=== PATIENT | male | born 1935 | race Caucasian/White ===

== ENCOUNTER → 2017-05-24 | Outpatient (CLI) | payer MEDICARE ==
[2015-05-13 14:00] VITALS: BP 151/89
[~2017-05-24] MED LIST: ASPI-630 PO; CIPR500T94 PO; DULO20CA50 PO; GLIM4TAB2 PO; HYDR-971 PO; LEVO100T5 PO; LISI10TA2 PO; METF10002 PO; PHEN100T82 PO; SIMV80TA3 PO; SITA50TA PO; TAMS0.4C97 PO
[2017-05-24 12:15] LABS: ALBUMIN 3.8 g/dL (3.4-5.0); ALBUMIN/GLOBULIN RATIO 1.1 (1.0-1.7); CALCIUM 9.4 mg/dL (8.5-10.1); GFR 71.5; TOTAL BILIRUBIN 0.7 mg/dL (0.2-1.0); TOTAL PROTEIN 7.3 g/dL (6.4-8.2)
== END | disposition home or self-care (01) ==
LOC: LAB 10:58
PROVIDERS: ATTEND Internal Medicine Interventional Cardiology
DX: E78.2 Mixed hyperlipidemia (principal); E11.9 Type 2 diabetes mellitus without complications; I10 Essential (primary) hypertension
CPT/HCPCS: 36415; 80053; 80061

== ENCOUNTER → 2018-06-25 | Outpatient (CLI) | payer MEDICARE ==
[2015-05-13 14:00] VITALS: BP 151/89
[~2018-06-25] MED LIST changes: +HYDR-3165 PO; -HYDR-971 PO; -METF10002 PO; +METF10007 PO; +SIMV80TA17 PO; -SIMV80TA3 PO
[2018-06-25 12:53] LABS: ALBUMIN 3.8 g/dL (3.4-5.0); ALBUMIN/GLOBULIN RATIO 1.2 (1.0-1.7); CALCIUM 9.2 mg/dL (8.5-10.1); GFR 71.4; TOTAL BILIRUBIN 0.8 mg/dL (0.2-1.0)
== END | disposition home or self-care (01) ==
LOC: LAB 11:57
PROVIDERS: ATTEND Internal Medicine Interventional Cardiology
DX: E78.2 Mixed hyperlipidemia (principal); I10 Essential (primary) hypertension
CPT/HCPCS: 36415; 80053; 80061

== ENCOUNTER → 2018-06-25 | Outpatient (CLI) | payer MEDICARE ==
[2015-05-13 14:00] VITALS: BP 151/89
== END | disposition home or self-care (01) ==
LOC: LAB 12:07
PROVIDERS: ATTEND Urology
DX: R97.20 Elevated prostate specific antigen [PSA] (principal)
CPT/HCPCS: 84153; G0103

== ENCOUNTER → 2019-03-22 | Outpatient (CLI) | payer MEDICARE ==
[2015-05-13 14:00] VITALS: BP 151/89
[~2019-03-22] MED LIST changes: -GLIM4TAB2 PO; +GLIM4TAB4 PO
--- NOTE | 2019-03-22 13:34 | RAD ---
EXAM: Head CT without contrast. HISTORY: Memory issues. TECHNIQUE: Computed tomographic images of the head were obtained without contrast. *One or more of the following individualized dose reduction techniques were utilized for this examination: 1. Automated exposure control. 2. Adjustment of the mA and/or kV according to patient size. 3. Use of iterative reconstruction technique. COMPARISON: None. FINDINGS: There is no hemorrhage. There is no mass effect or midline shift. There is particular enlargement due to cerebral atrophy. There is also mild cerebellar volume loss. There are areas of decreased attenuation within the cerebral white matter, nonspecific and likely related to chronic small vessel disease. The visualized portions of the orbits, paranasal sinuses and mastoid air cells are unremarkable. No suspicious calvarial lesion is seen. IMPRESSION: 1. No acute intracranial finding. 2. Decreased attenuation within the cerebral white matter, likely due to chronic small vessel disease. 3. Cerebral and cerebellar volume loss. Electronically signed by: Devi Baxter MD (03/22/2019 1:31 PM) [id number]
== END | disposition home or self-care (01) ==
LOC: CT 10:02
PROVIDERS: ATTEND Family Medicine
DX: G31.9 Degenerative disease of nervous system, unspecified (principal); R41.3 Other amnesia
CPT/HCPCS: 70450

== ENCOUNTER 2020-04-22 13:45 | Emergency (ER) | payer MEDICARE ==
[~2020-04-22] VITALS: Ht 167.6 cm; Wt 76.6 kg
[~2020-04-22 13:45] MED LIST changes: -GLIM4TAB4 PO; +GLIM4TAB8 PO
--- NOTE | 2020-04-22 14:43 | PHYS DOC ---
Past History Past Medical History: Diabetes, CO, Other Additional Past Medical Histor: Cardiac Past Surgical History: Other Additional Past Surgical Histo: Cardiac Alcohol Use: None General Adult EDM: Chief Complaint: WEAKNESS/GENERALIZED HPI: HPI: Patient is a [age] year old [sex] who presents with [] Review of Systems: Review of Systems: Constitutional: Denies fever or chills Eyes: Denies redness or eye pain HENT: Denies nasal congestion or sore throat Respiratory: Denies cough or shortness of breath Cardiovascular: Denies chest pain or palpitations GI: Denies abdominal pain, nausea, or vomiting : Denies dysuria or hematuria Musculoskeletal: Denies back pain or joint pain Integument: Denies rash or skin lesions Neurologic: Denies headache, focal weakness or sensory changes Complete systems were reviewed and found to be within normal limits, except as documented in this note. Allergies: Allergies: Allergies Coded Allergies Type Severity Reaction Last Updated Verified codeine Allergy Intermediate 05/13/15 No Physical Exam: PE: Constitutional: Well developed, well nourished, no acute distress, non-toxic appearance HENT: Normocephalic, atraumatic Eyes: PERRL, EOMI, conjunctiva normal, no discharge Neck: Normal range of motion, no tenderness, supple Lungs & Thorax: No respiratory distress, equal chest rise and fall Abdomen: Soft, no tenderness Skin: Warm, dry, no erythema, no rash Back: No tenderness, no CVA tenderness Extremities: No tenderness, ROM intact, no edema Neurologic: Alert and oriented X 3, normal motor function, normal sensory function, no focal deficits noted Psychologic: Affect normal, judgment normal Current Patient Data: Vital Signs: Vital Signs Date Time Temp Pulse Resp B/P (MAP) Pulse Ox O2 Delivery O2 Flow Rate FiO2 04/22/20 14:02 98.2 72 16 167/80 (109) 99 EKG: EKG: @1452 NSR at 69bpm, occasional PVC, NO ST elevation, QRS 84ms, QT/QTc 360/387ms Radiology/Procedures: Radiology/Procedures: PROCEDURE: CHEST AP ONLY EXAM: CHEST 1 VIEW History: Weakness, cough COMPARISON: None available. TECHNIQUE: Single portable radiograph of the chest FINDINGS: The cardiac silhouette is unremarkable. The lungs are clear bilaterally. The costophrenic sulci are clear and well demarcated. IMPRESSION: No radiographic evidence of an acute cardiopulmonary process. Electronically signed by: Sebas Lizarraga MD (04/22/2020 3:18 PM) [id number] Heart Score: Risk Factors: Risk Factors: DM, Current or recent (<one month) smoker, HTN, HLP, family history of CAD, obesity. Risk Scores: Score 0 - 3: 2.5% MACE over next 6 weeks - Discharge Home Score 4 - 6: 20.3% MACE over next 6 weeks - Admit for Clinical Observation Score 7 - 10: 72.7% MACE over next 6 weeks - Early Invasive Strategies Course & Med Decision Making: Course & Med Decision Making Pertinent Labs and Imaging studies reviewed. (See chart for details) [] Dragon Disclaimer: Dragon Disclaimer: This electronic medical record was generated, in whole or in part, using a voice recognition dictation system. Departure Departure: Impression: Primary Impression: Bronchitis Additional Impressions: Suspected 2019 novel coronavirus infection Hyperglycemia Lactic acidosis Disposition: 01 DC HOME SELF CARE/HOMELESS Condition: STABLE Referrals: GISSELL POLLACK MD (PCP) Patient Instructions: Hyperglycemia, [id number], Lactic Acid, Lactate, Upper Respiratory Infection, Adult, [id number] Additional Instructions: You have been tested for or diagnosed with COVID-19. It is an infection caused by a new type of coronavirus. COVID-19 will cause cold-like or mild flu symptoms in most. It can cause more severe symptoms like problems breathing in some. There is no treatment for COVID-19. The body will clear the infection over time. Self-care will help to ease discomfort. Steps to Take: Self-Care Rest as needed. Healthy habits may help you feel better. Steps include: Choose healthy foods including fruits and vegetables. Drink water throughout the day. Get plenty of sleep each night. If you smoke, try to quit. It may ease breathing. Avoid alcohol. Keep Others Healthy The virus can spread to others. Droplets are released every time you sneeze or cough. The droplets can get into the mouth, nose, or eyes of people near you and lead to infection. To lower the chances of spreading COVID-19 to others: Stay at home until your doctor has said it is safe to leave. If you tested positive this will mean staying isolated until both of the following are true: At least 7 days have passed since the start of illness. You are free of fever for at least 72 hours without the use of medicine. During this time: - Avoid public areas, events, or transportation. Do not return to work or school until your doctor has said it is safe to do so. - Call ahead if you need to go to a medical center. Let them know you may have COVID-19. It will help them guide you where to go. They may also ask you to wear a facemask when you come to the office. - If you call for emergency medical services, let them know you may have COVID- 19. While at home: - Try to avoid close contact with others. Stay about 6 feet away. - If possible, spend most of your time in a separate room from others. - Use a face mask if you will be in close contact with others such as sharing a room or vehicle. - Have someone wipe down common surfaces in the home. Use household printing press operator apprentice every day on areas like doorknobs, counters, or sinks. - Cough or sneeze into a tissue. Throw the tissue away right after use. If a tissue is not available, cough or sneeze into your elbow. - Wash your hands often. Wash them after sneezing or coughing. Use soap and water and wash for at least 20 seconds. Alcohol based hand catch basin cleaner can be used if soap and water is not available. - Do not prepare food for others. Avoid sharing personal items like forks, spoons, or toothbrushes. - Avoid close contact with pets while you are sick. There is no evidence of the virus passing to pets. This is a safety step until more is known about this virus. Isolation can be frustrating. Social interaction can help. Keep in touch with friends and family through phone and tech options. You can still interact with others in your home, just keep a safe distance of about 6 feet. Follow-up: Your doctors office will check in with you to see if there are any changes in your health. You may be asked to keep track of symptoms to share with them. They will also let you know when you are clear to be in public again. Problems to Look Out For: Contact your doctor if your recovery is not going as you expect. Get emergency care if you have problems such as: - Trouble breathing - Nonstop chest pain or pressure - Changes in awareness, confusion, or problems waking - Lips or face have bluish color - Worsening of symptoms If you think you have an emergency, call for emergency medical services right away. As taken from [facility] [facility] Azithromycin (AZITHROMYCIN TABLET) 250 Mg Tablet 1 PKG PO UD for bronchitis, #6 TAB Take 2 tablets today and then one tablet every day thereafter for the next 4 days Prov: ABBEY ANTHONY DO 04/22/20 ABBEY ANTHONY DO Apr 22, 2020 14:43
--- NOTE | 2020-04-22 15:22 | RAD ---
EXAM: CHEST 1 VIEW History: Weakness, cough COMPARISON: None available. TECHNIQUE: Single portable radiograph of the chest FINDINGS: The cardiac silhouette is unremarkable. The lungs are clear bilaterally. The costophrenic sulci are clear and well demarcated. IMPRESSION: No radiographic evidence of an acute cardiopulmonary process. Electronically signed by: Sebas Lizarraga MD (04/22/2020 3:18 PM) [id number]
[2020-04-22 15:26] LABS: CALCIUM 9.5 mg/dL (8.5-10.1); CREATININE 1.1 mg/dL (0.7-1.3); GFR 63.6; POTASSIUM 4.2 mmol/L (3.5-5.1)
[2020-04-22 15:28] LABS: BASO # 0.1 x10^3/uL (0.0-0.2); BASO % 1 % (0-3); EOS # 0.2 x10^3/uL (0.0-0.7); EOS % 2 % (0-3); HEMATOCRIT 37.5 % (39.0-53.0); HEMOGLOBIN 12.5 g/dL (13.0-17.5); LYMPH # 1.4 x10^3/uL (1.0-4.8); LYMPH % 19 % (24-48); MEAN CORPUSCULAR HEMOGLOBIN 32 pg (25-35); MEAN CORPUSCULAR HGB CONC 33 g/dL (31-37); MEAN CORPUSCULAR VOLUME 95 fL (79-100); MONO # 0.7 x10^3/uL (0.0-1.1); MONO % 10 % (0-9); NEUT % 68 % (31-73); PLATELET COUNT 214 x10^3/uL (140-400); RED BLOOD COUNT 3.95 x10^6/uL (4.30-5.70); RED CELL DISTRIBUTION WIDTH 13.2 % (11.5-14.5); WHITE BLOOD COUNT 7.3 x10^3/uL (4.0-11.0)
--- NOTE | 2020-04-22 15:35 | EKG ---
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
[2020-04-22 15:39] LABS: ALBUMIN 3.9 g/dL (3.4-5.0); ALBUMIN/GLOBULIN RATIO 1.1 (1.0-1.7); TOTAL BILIRUBIN 0.7 mg/dL (0.2-1.0); TOTAL PROTEIN 7.5 g/dL (6.4-8.2)
[2020-04-22 15:48] LABS: INFLUENZA A PATIENT NEGATIVE (NEGATIVE); INFLUENZA B PATIENT NEGATIVE (NEGATIVE)
[2020-04-22] MEDS ORDERED: IV NORMAL SALINE 1,000ML 1,000 ML IV ONE (16:30)
[2020-04-22] MEDS ORDERED: INSULIN REGULAR 100 UNIT/ML 3ML VIAL. SQ ONE (16:30)
[2020-04-22 16:55] LABS: BILIRUBIN,URINE NEG (NEG); CLARITY,URINE CLEAR; COLOR,URINE STRAW; GLUCOSE,URINE >=1000 mg/dL (NEG)
[2020-04-22 16:56] LABS: BACTERIA,URINE 0 /HPF (0-FEW); NITRITE,URINE NEG (NEG); RBC,URINE 0 /HPF (0-2); SQUAMOUS EPITHELIAL CELL,UR OCC /LPF; UROBILINOGEN,URINE 0.2 mg/dL (0.2 mg/dL); WBC,URINE 0 /HPF (0-4)
[2020-04-22] MEDS ORDERED: AZIT250T6 PO (17:11)
[2020-04-22 17:15] VITALS: BP 185/92
== END 2020-04-22 17:16 | disposition home or self-care (01) ==
LOC: ER 13:45
DX: J40 Bronchitis, not specified as acute or chronic (principal); E11.65 Type 2 diabetes mellitus with hyperglycemia; I25.2 Old myocardial infarction; E87.2 Acidosis; Z20.828 Contact with and (suspected) exposure to other viral communicable diseases; Z88.5 Allergy status to narcotic agent
CPT/HCPCS: 36415; 71045; 80053; 81001; 83605; 83735; 83880; 85025; 85610; 85730; 87804; 93005; 96360; 96372; 99285; C9803; J1815; J7030; U0003

== ENCOUNTER → 2020-07-10 | Outpatient (CLI) | payer MEDICARE ==
[~2020-07-10] MED LIST changes: +AZIT250T6 PO
[2020-07-10 10:29] LABS: CALCIUM 9.4 mg/dL (8.5-10.1); CREATININE 1.2 mg/dL (0.7-1.3); GFR 57.5; POTASSIUM 5.1 mmol/L (3.5-5.1)
== END ==
LOC: LAB 09:51
PROVIDERS: ATTEND Internal Medicine Interventional Cardiology
DX: I10 Essential (primary) hypertension (principal)
CPT/HCPCS: 36415; 80048

== ENCOUNTER 2020-11-18 16:31 | Emergency (ER) | payer MEDICARE ==
[~2020-11-18] VITALS: Ht 165.1 cm; Wt 75.0 kg
[~2020-11-18 16:31] MED LIST changes: +LISI10TA16 PO; -LISI10TA2 PO
[2020-11-18] MEDS ORDERED: IV NORMAL SALINE 1,000ML 1,000 ML IV SCH (16:45)
--- NOTE | 2020-11-18 16:45 | PHYS DOC ---
General Adult HPI: HPI: Patient is a 84-year-old male presents with A. fib RVR. states that patient's heart rate has been in the 140s since last week. Patient was seen by his PCP today and was told to follow-up with cardiology. Patient contacted his independent consultant who referred him to the emergency room. Patient denies dizziness, chest pain, shortness of breath. Patient denies history of A. fib. Patient has a history of CAD, hypertension, diabetes, CABG, dementia. (MARY FREITAS APRN) Review of Systems: Review of Systems: Constitutional: Denies fever or chills Eyes: Denies change in visual acuity HENT: Denies nasal congestion or sore throat Respiratory: Denies cough or shortness of breath Cardiovascular: Denies chest pain or edema GI: Denies abdominal pain, nausea, vomiting, bloody stools or diarrhea : Denies dysuria Musculoskeletal: Denies back pain or joint pain Integument: Denies rash Neurologic: Denies headache, focal weakness or sensory changes Endocrine: Denies polyuria or polydipsia Lymphatic: Denies swollen glands Psychiatric: Denies depression or anxiety (MARY FREITAS APRN) Physical Exam: PE: Constitutional: Well developed, well nourished, no acute distress, non-toxic appearance. HENT: Normocephalic, atraumatic, bilateral external ears normal, oropharynx moist, no oral exudates, nose normal. Eyes: PERRLA, conjunctiva normal, no discharge. Neck: Normal range of motion, no tenderness, no stridor. Cardiovascular:Heart rate A. fib, 142 bpm, no edema Lungs & Thorax: Bilateral breath sounds clear to auscultation Abdomen: Bowel sounds normal, soft, no tenderness, no masses. Skin: Warm, dry, no erythema, no rash. Back: No tenderness, no CVA tenderness. Extremities: No tenderness, ROM intact, no edema. Neurologic: Alert and oriented X 3, normal motor function, normal sensory function Psychologic: Affect normal, judgement normal, mood normal. [] (MARY FREITAS ASSOCIATE SALES REPRESENTATIVE) EKG: EKG: A. fib RVR, heart rate 141 bpm [] Repeat EKG shows A. fib, rate controlled, 72 bpm@1733 (MARY FREITAS APRN) Radiology/Procedures: Radiology/Procedures: []XR CHEST 1V INDICATION: TACHYCARDIA COMPARISON STUDY: 04/22/2020. FINDINGS: Lungs: Normal lung volume. Asymmetric opacity at the right medial lung apex. The tracheobronchial tree and hilar structures are normal. Pleura: No pleural effusion or pneumothorax. Heart and Mediastinum: Cardiomegaly. CABG. Atherosclerosis of the thoracic aorta. IMPRESSION: Asymmetric opacity at the right medial lung apex. While this could be artifactual due to superimposed structures or asymmetric degenerative changes, an underlying lesion or consolidation difficult to exclude. A chest CT or follow-up chest radiograph is recommended to assess stability Electronically signed by: Rubens Turcios MD (11/18/2020 5:07 PM) [facility] (MARY FREITAS APRN) Heart Score: C/O Chest Pain: No Risk Factors: Risk Factors: DM, Current or recent (<one month) smoker, HTN, HLP, family history of CAD, obesity. Risk Scores: Score 0 - 3: 2.5% MACE over next 6 weeks - Discharge Home Score 4 - 6: 20.3% MACE over next 6 weeks - Admit for Clinical Observation Score 7 - 10: 72.7% MACE over next 6 weeks - Early Invasive Strategies (MARY FREITAS APRN) Course & Med Decision Making: Course & Med Decision Making Pertinent Labs and Imaging studies reviewed. (See chart for details) [] 84-year-old male presents with A. fib RVR. states patient has had a heart rate in the 140s for about a week. Patient's home health nurse told him since he was asymptomatic that he could wait and follow-up with his PCP. Patient was seen at [place]'s office today and told he would need to follow-up with cardiology. Patient's independent consultant referred him to the emergency room to be seen. EKG showed A. fib RVR, 141 bpm. Patient is asymptomatic at this time. Denies shortness of breath, chest pain, dizziness. Denies past history of A. fib. Patient takes 81 mg aspirin daily. All labs reviewed were unremarkable. Troponin was negative. Patient given 20 of Cardizem bolus. Repeat EKG ordered 1730, EKG shows controlled A. fib, heart rate 70 bpm. Patient given heparin bolus and started on heparin drip. Chest x-ray showed opacity right medial lung, CTA needed to r ule out lesion. Creatinine 1.2. Spoke with , who will accept patient at [facility]. , is requesting CTA to be completed prior to transfer to [facility] to rule out lesion. Will continue heparin drip. Patient and patient's informed of admission to [facility]. Patient agrees with admit plan to [facility]. Patient will be admitted to [facility] for, new onset atrial fibrillation. Transfer patient care to Dr. Dillard at 1954. (MARY FREITAS APRN) Course & Med Decision Making I oversaw on the above date of service of this patient and discussed the care with the FRONT COUNTER ATTENDANT. I guided treatment of patient in atrial fibrillation with RVR and subsequent work-up with recommendations for transfer and ultimately admission. I agree with the findings, plan of care, and disposition as documented. Critical Care Time This patient required critical care. Due to the fact that the patient required a significant amount of one on one physician - patient contact time, ordering and review of studies, arranging urgent treatment with development of a management plan, evaluation of patients response to treatment with frequent reassessments, and discussions with other providers this patient required 40 minutes of critical care time. Critical care time was indicated due to the inherent instability and/or potential for instability in this patient. The critical care time that is allocated to this patient is above and beyond any time spent on any other billable procedures performed on this patient. Electronically signed, Cheli Vazquez DO (CHELI VAZQUEZ DO) Cameron Disclaimer: Cameron Disclaimer: This electronic medical record was generated, in whole or in part, using a voice recognition dictation system. (MARY FREITAS APRN) Departure Departure: Impression: Primary Impression: New onset atrial fibrillation Disposition: 02 SHORT TERM HOSPITAL Condition: STABLE Referrals: GISSELL POLLACK MD (PCP) MARY FREITAS APRN Nov 18, 2020 16:45 CHELI VAZQUEZ DO Nov 19, 2020 06:46
--- NOTE | 2020-11-18 16:52 | EKG ---
[address] [address] Test Date: 2020-11-18 Test Time: 16:36:16 Pat Name: IVANIA ROWE Department: Room: Gender: M Vision Therapist: FRANCES : 1935 Requested By: MARY FREITAS Order Number: [id number] Reading MD: Measurements Intervals [place] Rate: 141 P: [place]: QRS: 3 QRSD: 84 T: -2 QT: 300 QTc: 462 Interpretive Statements IRREGULAR RHYTHM, NO P-WAVE FOUND QRS(T) CONTOUR ABNORMALITY CONSISTENT WITH INFERIOR INFARCT PROBABLY OLD ST & T ABNORMALITY, CONSIDER HIGH LATERAL ISCHEMIA OR LEFT VENTRICULAR STRAIN ABNORMAL ECG RI6.02 No previous ECG available for comparison
[2020-11-18] MEDS ORDERED: dilTIAZem 25 MG/5 ML VIAL IVP ONE (17:00)
--- NOTE | 2020-11-18 17:09 | RAD ---
XR CHEST 1V INDICATION: TACHYCARDIA COMPARISON STUDY: 04/22/2020. FINDINGS: Lungs: Normal lung volume. Asymmetric opacity at the right medial lung apex. The tracheobronchial david e and hilar structures are normal. Pleura: No pleural effusion or pneumothorax. Heart and Mediastinum: Cardiomegaly. CABG. Atherosclerosis of the thoracic aorta. IMPRESSION: Asymmetric opacity at the right medial lung apex. While this could be artifactual due to superimposed structures or asymmetric degenerative changes, an underlying lesion or consolidation difficult to ex clude. A chest CT or follow-up chest radiograph is recommended to assess stability Electronically signed by: Rubens Turcios MD (11/18/2020 5:07 PM) [facility]
[2020-11-18 17:11] LABS: BASO # 0.1 x10^3/uL (0.0-0.2); BASO % 1 % (0-3); EOS # 0.1 x10^3/uL (0.0-0.7); EOS % 1 % (0-3); HEMATOCRIT 38.2 % (39.0-53.0); HEMOGLOBIN 12.8 g/dL (13.0-17.5); LYMPH # 1.7 x10^3/uL (1.0-4.8); LYMPH % 15 % (24-48); MEAN CORPUSCULAR HEMOGLOBIN 31 pg (25-35); MEAN CORPUSCULAR HGB CONC 34 g/dL (31-37); MEAN CORPUSCULAR VOLUME 93 fL (79-100); MONO # 1.1 x10^3/uL (0.0-1.1); MONO % 9 % (0-9); NEUT # 8.6 x10^3uL (1.8-7.7); NEUT % 74 % (31-73); PLATELET COUNT 224 x10^3/uL (140-400); RED BLOOD COUNT 4.12 x10^6/uL (4.30-5.70); RED CELL DISTRIBUTION WIDTH 14.2 % (11.5-14.5); WHITE BLOOD COUNT 11.5 x10^3/uL (4.0-11.0)
[2020-11-18 17:19] LABS: CALCIUM 9.6 mg/dL (8.5-10.1); CREATININE 1.2 mg/dL (0.7-1.3); GFR 57.5
[2020-11-18 17:25] LABS: ALBUMIN 4.2 g/dL (3.4-5.0); ALBUMIN/GLOBULIN RATIO 1.4 (1.0-1.7); TOTAL BILIRUBIN 0.6 mg/dL (0.2-1.0); TOTAL PROTEIN 7.2 g/dL (6.4-8.2)
[2020-11-18] MEDS ORDERED: HEPARIN for IV BOLUS 10,000 UNIT/10 ML VIAL. IV PRN (17:45)
[2020-11-18] MEDS ORDERED: HEPARIN for IV BOLUS 10,000 UNIT/10 ML VIAL. IV ONE (17:45)
[2020-11-18] MEDS ORDERED: HEPARIN 25,000UTS/250ML PREMIX 250 ML IV PRN (17:45)
--- NOTE | 2020-11-18 17:57 | EKG ---
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
[2020-11-18] MEDS ORDERED: IOHEXOL 350 MG/ML 100 ML VIAL. IV ONE (19:30)
[2020-11-18] MEDS ORDERED: IOHEXOL 300 MG/ML 75 ML VIAL. IV ONE (19:45)
[2020-11-18] MEDS ORDERED: CONTRAST GIVEN. MC PRN (19:45)
[2020-11-18 19:56] VITALS: BP 131/74
--- NOTE | 2020-11-18 20:07 | RAD ---
Examination: CT chest with IV contrast HISTORY: History of abnormal x-ray, medial right lung capacity COMPARISON: None available TECHNIQUE: Axial CT images of the chest were performed with IV contrast. Coronal and sagittal reforma ts are performed Exposure: One or more of the following individualized dose reduction techniques were utilized for thi s examination: 1. Automated exposure control 2. Adjustment of the mA and/or kV according to patient size 3. Use of iterative reconstruction technique FINDINGS: The central airways are patent. Few small calcified mediastinal lymph nodes identified. Moderate aort ic atherosclerosis. Coronary artery calcifications. Faint groundglass airspace opacities identified i n the left upper lobe of the lung. Mild right lung base atelectasis identified. The visualized liver, spleen, adrenals grossly appears unremarkable Faint fat stranding identified about the bilateral kidneys partially visualized. 1.5 cm cyst right ki dney. Moderate degenerative changes thoracic spine. Calcified disc protrusion or prominent ligament i dentified at T7-T8 vertebral level causing moderate spinal canal stenosis. IMPRESSION: 1. Faint groundglass airspace opacities identified in the left upper lobe of the lung likely atelect asis or infiltrates. Follow-up to resolution. 2. Faint fat stranding identified about the bilateral kidneys partially visualized could be due to m edical renal disease or pyelonephritis. Electronically signed by: Sebas Lizarraga MD (11/18/2020 8:04 PM) [id number]
== END 2020-11-18 20:50 | disposition short-term general hospital (02) ==
LOC: MERGE 16:31 → ER 16:31
DX: I48.91 Unspecified atrial fibrillation (principal)
CPT/HCPCS: 36415; 71045; 71260; 80053; 84443; 84484; 85025; 85610; 85730; 93005; 96361; 96365; 96375; 96376; 99291; J1644; J3490; J7030; Q9967

== ENCOUNTER → 2020-11-30 | Outpatient (CLI) | payer MEDICARE ==
[2020-11-30 13:09] LABS: CALCIUM 8.8 mg/dL (8.5-10.1); CREATININE 1.4 mg/dL (0.7-1.3); GFR 48.2; POTASSIUM 4.5 mmol/L (3.5-5.1)
== END ==
LOC: LAB 12:09
PROVIDERS: ATTEND Internal Medicine Interventional Cardiology
DX: I10 Essential (primary) hypertension (principal)
CPT/HCPCS: 36415; 80048

== ENCOUNTER → 2021-01-08 | Outpatient (CLI) | payer MEDICARE ==
[2021-01-08 15:16] LABS: CALCIUM 9.1 mg/dL (8.5-10.1); CREATININE 1.7 mg/dL (0.7-1.3); GFR 38.4; POTASSIUM 5.8 mmol/L (3.5-5.1)
[2021-01-08 16:07] LABS: ALBUMIN 3.9 g/dL (3.4-5.0); ALBUMIN/GLOBULIN RATIO 1.2 (1.0-1.7); CALCIUM 9.1 mg/dL (8.5-10.1); CREATININE 1.7 mg/dL (0.7-1.3); GFR 38.4; POTASSIUM 5.8 mmol/L (3.5-5.1); TOTAL BILIRUBIN 0.7 mg/dL (0.2-1.0); TOTAL PROTEIN 7.2 g/dL (6.4-8.2)
--- NOTE | 2021-01-08 17:36 | RAD ---
EXAMINATION: XR CHEST 2V CLINICAL HISTORY: Atrial fibrillation EXAM DATE/TIME: 01/08/2021 2:35 PM COMPARISON: None FINDINGS: Lines, Tubes, and Devices: None. Cardiomediastinal Silhouette: Normal heart size. Aortic atherosclerotic calcification. Lungs and Pleura: Mild left basilar subsegmental atelectasis and/or scarring, similar to prior study. No evidence of focal airspace consolidation or pleural effusion. Pulmonary vasculature unremarkable. Bones and Soft Tissues: Degenerative changes of the thoracic spine. Median sternotomy wires and kade ediastinal surgical clips. IMPRESSION: No evidence of acute cardiopulmonary abnormality or significant interval change. Electronically signed by: Eh Cruz DO (01/08/2021 5:34 PM) [id number]
[2021-01-12 18:23] LABS: FREE T4 1.41 ng/dL (0.76-1.46); THYROID STIM HORMONE (TSH) 1.177 uIU/mL (0.358-3.740)
== END ==
LOC: LAB 14:18
PROVIDERS: ATTEND Internal Medicine Interventional Cardiology
DX: I10 Essential (primary) hypertension (principal); I48.91 Unspecified atrial fibrillation; Z79.899 Other long term (current) drug therapy
CPT/HCPCS: 36415; 71046; 80048; 80053; 83735; 84439; 84443

== ENCOUNTER → 2021-03-22 | Outpatient (CLI) | payer MEDICARE ==
[2021-03-22 10:42] LABS: CALCIUM 8.9 mg/dL (8.5-10.1); CREATININE 1.5 mg/dL (0.7-1.3); GFR 44.4; POTASSIUM 4.2 mmol/L (3.5-5.1)
== END ==
LOC: LAB 09:12
PROVIDERS: ATTEND Internal Medicine Interventional Cardiology
DX: I10 Essential (primary) hypertension (principal)
CPT/HCPCS: 36415; 80048